=== PATIENT | male | born 1965 | race Caucasian/White ===

== ENCOUNTER → 2025-04-08 09:44 | Outpatient (CLI) | payer OTHER, SELFPAY ==
--- NOTE | 2025-04-08 09:46 | DI.RAD.S_ITS ---
1PROCEDURE: XR CHEST 2V INDICATIONS: Cough TECHNIQUE: 2 views of the chest were acquired. COMPARISON: None. FINDINGS: Surgical changes and devices: None. Lungs and pleura: Lungs are clear. No pleural effusions or pneumothorax. Mediastinum: Mediastinal contours are normal. Heart size is normal. Bones and chest wall: No suspicious bony abnormalities. Soft tissues appear unremarkable. Multilevel degenerative disc disease noted. IMPRESSION: No acute cardiopulmonary abnormality is seen. Dictated by: Nazanin Joseph M.D. on 04/10/2025 at 19:03 Approved by: Nazanin Joseph M.D. on 04/10/2025 at 19:03
== END ==
PROVIDERS: PCP Family Medicine; Referring Provider Nurse Practitioner Family; Visit Provider Nurse Practitioner Family
DX: R05.9 Cough, unspecified (principal)
CPT/HCPCS: 71046

== ENCOUNTER → 2025-04-18 17:45 | Outpatient (CLI) | payer OTHER, SELFPAY ==
[2025-04-18 18:56] LABS: Influenza A - CEPHEID Flu A POSITIVE (NEGATIVE); Influenza B - CEPHEID Flu B NEGATIVE (NEGATIVE)
[2025-04-18 19:12] LABS: COVID-19 CEPHEID 4-PLEX PCR Negative (Negative)
== END ==
PROVIDERS: PCP Family Medicine; Visit Provider Nurse Practitioner Family
DX: R05.9 Cough, unspecified (principal); R50.9 Fever, unspecified
CPT/HCPCS: 87637